=== PATIENT | male | born 1965 | race Caucasian/White ===

== ENCOUNTER → 2023-02-16 | Outpatient (CLI) | payer OTHER ==
[~2023-02-16] MED LIST: ASPI81EC PO; CARV6.25 PO; HYDCHL25 PO; LISI5 PO
== END | disposition home or self-care (01) ==
LOC: LAB 15:00 → LAB SHORT 15:00
DX: L08.9 Local infection of the skin and subcutaneous tissue, unspecified (principal)
CPT/HCPCS: 87070; 87205

== ENCOUNTER 2024-06-16 19:55 | Emergency (ER) | payer MEDICARE, OTHER ==
[~2024-06-16] VITALS: Ht 190.5 cm; Wt 162.0 kg
[2024-06-16 20:25] VITALS: BP 134/100
== END 2024-06-16 23:32 | disposition home or self-care (01) ==
LOC: ER 19:55
DX: K59.00 Constipation, unspecified (principal); I10 Essential (primary) hypertension; Z79.82 Long term (current) use of aspirin; Z79.899 Other long term (current) drug therapy
CPT/HCPCS: 99284

== ENCOUNTER 2024-07-21 07:37 | Day surgery (SDC) | payer MEDICARE, OTHER ==
[~2024-07-21] VITALS: Ht 190.5 cm; Wt 161.3 kg
[2024-07-21] VITALS (13 sets, daily range): BP systolic 132–164; BP diastolic 82–109
[~2024-07-21 07:37] MED LIST changes: +Amlodipine Besy10 MG PO; +Dexamethasone Sod Phos 10 MG/ML 1ML VIAL ONE; +FURO20 PO; +FentaNYL Citrate 50 MCG/ML 2 ML Injection ONE; +Lisinopril-Hct1 EAC4 PO; +Ondansetron HCl 2 MG / ML 2ML Vial ONE; +Percocet 10-321 EACH PO; +Rocuronium Bromide 10 MG/ML 5ML Injection IV ONE; +STENDRA100 MG PO; +Sugammadex Sodium 200 MG/2ML SDV (100 MG/ML) ONE; +Viagra100 MG PO; +WEGOVY0.25 MG/0. SQ; +propofoL 40 ML IV ONE
[2024-07-21] MEDS ORDERED: FentaNYL Citrate 50 MCG/ML 2 ML Injection IV PRN ×3 (08:00→08:10)
[2024-07-21] MEDS ORDERED: Albuterol 2.5 MG/3 ML VIAL INH PRN (08:05)
[2024-07-21] MEDS ORDERED: Ipratropium Bromide INH 0.02% 0.5 mg/2.5ML Vial INH ONE (08:05)
[2024-07-21] MEDS ORDERED: Metoclopramide HCl 5MG / ML 2ML Vial IV PRN (08:05)
[2024-07-21] MEDS ORDERED: Ondansetron HCl 2 MG / ML 2ML Vial IV PRN (08:05)
[2024-07-21] MEDS ORDERED: Lidocaine HCl 1% 5 ML SYR INJ ONE (08:05)
[2024-07-21] MEDS ORDERED: Citric Acid/Sodium Citrate 30 ML BTL PO ONE (08:05)
[2024-07-21] MEDS ORDERED: Lactated Ringer's 1,000 ML IV SCH (08:05)
[2024-07-21] MEDS ORDERED: Atropine Sulfate 0.1 MG/ML 10ML SYR IV PRN (08:10)
[2024-07-21] MEDS ORDERED: Albuterol 2.5 MG/3 ML VIAL INH ONE (08:10)
[2024-07-21] MEDS ORDERED: CeFAZolin Sodium 3,000 MG in NS 100 ML IV SCH (08:15)
[2024-07-21] MEDS ORDERED: NEBI5 (08:28)
[2024-07-21] MEDS ORDERED: Ketorolac Tromethamine 30mg Vial ONE (08:50)
[2024-07-21] MEDS ORDERED: Bupivacaine 0.5% HCl 5 MG/ML 30MLVIAL ONE (08:53)
--- NOTE | 2024-07-21 08:59 | NUR ---
History, Chart, Medications and Allergies reviewed before start of procedure. Pre-Op teaching done. Pt verbalizes understanding. Patient confirms NPO status and agrees with scheduled surgery. PT BELONGINGS BAG WITH CLOTHES AND SHOES PALCED UNDER GURNEY. PT HANDED WALLET AND PHONE TO AT BS.
[2024-07-21] MEDS ORDERED: Midazolam HCl 1MG / ML 2ML Vial IV ONE (09:00)
[2024-07-21] MEDS ORDERED: CeFAZolin Sodium 1000 mg Vial ONE (09:27)
[2024-07-21] MEDS ORDERED: FentaNYL Citrate 50 MCG/ML 2 ML Injection ONE ×3 (09:35→11:11)
[2024-07-21] MEDS ORDERED: Rocuronium Bromide 10 MG/ML 5ML Injection IV ONE (09:54)
[2024-07-21] MEDS ORDERED: Enalaprilat 1.25 MG/ML 2ML Vial IV PRN (10:10)
[2024-07-21] MEDS ORDERED: Sugammadex Sodium 200 MG/2ML SDV (100 MG/ML) ONE (10:15)
[2024-07-21] MEDS ORDERED: HYDROcodone 5-APAP 325 TAB PO PRN (11:10)
[2024-07-21] MEDS ORDERED: Metoclopramide HCl 5MG / ML 2ML Vial ONE (11:15)
--- NOTE | 2024-07-21 12:36 | NUR ---
Patient up to Ambulate independently. Gait steady. Discharge instructions reviewed with patient. Patient verbalizes understanding. Copy given to patient to take home, WELL . Patient States Post-Procedure ride home has been arranged. Discharged via wheelchair to private car for ride home. PT DRESSING C/D/I. VOIDED PRIOR TO DISCHARGE WITH ASSIST FROM IN BATHROOM. PT TOLERATING PO, REPORTS PAIN TOLERABLE. REPORTS READY TO GO HOME.
== END 2024-07-21 12:36 | disposition home or self-care (01) ==
LOC: ORSCMMR 07:37 → ORD 09:00 → ORSCMMR 12:36
PROVIDERS: Surgery
PROC: 0WUF0JZ Supplement Abdominal Wall with Synthetic Substitute, Open Approach (ICD-10-PCS; principal; 2024-07-21 09:00)
DX: K43.6 Other and unspecified ventral hernia with obstruction, without gangrene (principal); I10 Essential (primary) hypertension; E11.9 Type 2 diabetes mellitus without complications; G47.33 Obstructive sleep apnea (adult) (pediatric); J45.909 Unspecified asthma, uncomplicated; E66.01 Morbid (severe) obesity due to excess calories; Z68.42 Body mass index [BMI] 45.0-49.9, adult; Z79.899 Other long term (current) drug therapy; Z79.82 Long term (current) use of aspirin
CPT/HCPCS: 82947; A9270; C1781; J0690; J1100; J1885; J2250; J2405; J2704; J2765; J3010; J7120

== ENCOUNTER 2025-07-07 11:23 | Emergency (ER) | payer OTHER, MEDICARE ==
[~2025-07-07] VITALS: Ht 190.5 cm; Wt 153.8 kg
[~2025-07-07 11:23] MED LIST changes: -Dexamethasone Sod Phos 10 MG/ML 1ML VIAL ONE; -FentaNYL Citrate 50 MCG/ML 2 ML Injection ONE; +NEBI5; -Ondansetron HCl 2 MG / ML 2ML Vial ONE; -Rocuronium Bromide 10 MG/ML 5ML Injection IV ONE; -Sugammadex Sodium 200 MG/2ML SDV (100 MG/ML) ONE; -propofoL 40 ML IV ONE
[2025-07-07] MEDS ORDERED: SPIRONOLACTONE25 MG PO (11:44)
[2025-07-07 11:49] LABS: BASOPHILS ABSOLUTE AUTO 0.02 K/mm3 (0.00-0.23); BASOPHILS PERCENT AUTO 0 % (0-2); EOSINOPHILS ABSOLUTE AUTO 0.09 K/mm3 (0.00-0.68); EOSINOPHILS PERCENT AUTO 1 % (0-6); Hematocrit 49.3 % (37.0-53.0); Hemoglobin 16.7 g/dL (13.5-17.5); IMMATURE GRAN ABSOLUTE AUTO 0.02 K/mm3 (0.00-0.10); IMMATURE GRAN PERCENT AUTO 0 % (0-1); LYMPHOCYTES ABSOLUTE AUTO 1.26 K/mm3 (0.84-5.20); LYMPHOCYTES PERCENT AUTO 19 % (21-46); MONOCYTES ABSOLUTE AUTO 0.56 K/mm3 (0.16-1.47); MONOCYTES PERCENT AUTO 8 % (4-13); Mean Corpuscular HGB Conc 33.9 g/dL (31.5-36.5); Mean Corpuscular Volume 92 fL (80-100); NEUTROPHILS ABSOLUTE AUTO 4.85 K/mm3 (1.96-9.15); NEUTROPHILS PERCENT AUTO 71 % (41-73); NRBC ABSOLUTE 0.00 K/mm3 (0.00-0.02); NRBC Auto 0.0 /100 WBC (0.0-0.2); Platelet Count 179 K/mm3 (150-400); RDW Coefficient Variation 14.1 % (11.7-14.2); RDW Standard Deviation 47.4 fL (35.1-46.3)
[2025-07-07] MEDS ORDERED: Prochlorperazine Edisylate 10 mg Vial IV ONE (11:55)
[2025-07-07] MEDS ORDERED: NS 1,000 ML IV SCH (11:55)
[2025-07-07] MEDS ORDERED: DiphenhydrAMINE HCl 50 MG/ML 1ML Vial IV ONE (11:55)
[2025-07-07] MEDS ORDERED: CARV25 PO (12:14)
[2025-07-07] MEDS ORDERED: MELO7.5 PO (12:16)
[2025-07-07] MEDS ORDERED: SITA100T2 PO (12:16)
[2025-07-07] MEDS ORDERED: ATOR40TA PO (12:17)
[2025-07-07] MEDS ORDERED: JARDIANCE25 MG PO (12:17)
[2025-07-07] MEDS ORDERED: METF500C PO (12:18)
[2025-07-07 12:27] LABS: Alanine Aminotransfer (ALT/SGP 32.0 U/L (12-78); Albumin, Blood 3.5 g/dL (3.4-5.0); Albumin/Globulin Ratio 1.2 (0.8-1.8); Anion Gap 9.0 mmol/L (3-11); Aspartate Aminotrans (AST/SGOT 14.0 U/L (12-37); Bilirubin, Total 1.2 mg/dL (0.1-1.0); Blood Urea Nitrogen 14.0 mg/dL (8-24); CO2, Blood 27.0 mmol/L (21-32); Calcium, Blood 8.8 mg/dL (8.5-10.1); Chloride, Blood 103.0 mmol/L (98-108); Creatinine, Blood 0.78 mg/dL (0.60-1.20); Globulin, Blood 3.0 g/dL (2.2-4.0); Glucose, Blood 159.0 mg/dL (70-99); Potassium, Blood 3.5 mmol/L (3.5-5.5); Sodium, Blood 135.0 mmol/L (136-145); Total Protein, Blood 6.5 g/dL (6.4-8.2)
[2025-07-07 14:13] VITALS: BP 122/96
== END 2025-07-07 14:23 | disposition home or self-care (01) ==
LOC: ER 11:23
PROVIDERS: Emergency Medicine
DX: G45.9 Transient cerebral ischemic attack, unspecified (principal); I10 Essential (primary) hypertension; Z79.899 Other long term (current) drug therapy
CPT/HCPCS: 70450; 70496; 70498; 80053; 82947; 84484; 85025; 93005; 93010; 96361; 96374-59; 96375-59; 99285-25; J0780; J1200; J7030; Q9967